=== PATIENT | female | born 1975 | race Caucasian/White ===

== ENCOUNTER 2017-06-01 12:37 | Emergency (ER) | payer OTHER ==
[~2017-06-01] VITALS: Ht 157.5 cm; Wt 75.7 kg
[2017-06-01 12:53] VITALS: Ht 157.5 cm; Wt 75.7 kg
[2017-06-01] MEDS ORDERED: KETOROLAC 30 MG INJ IV STA (14:16)
[2017-06-01] MEDS ORDERED: SOD CHLORIDE 0.9% 1,000 ML IV STA (14:16)
[2017-06-01 15:06] LABS: BASOPHILS % 0.2 % (0.0-2.0); EOSINOPHILS # 0.2 10^3/ul (0.0-0.5); EOSINOPHILS % 1.9 % (0.0-7.0); HEMATOCRIT 38.6 % (37.0-47.0); HEMOGLOBIN 12.8 g/dl (12.0-16.0); LYMPHOCYTES # 2.7 10^3/ul (0.8-2.9); LYMPHOCYTES % 29.2 % (15.0-51.0); MEAN CORPUSCULAR HEMOGLOBIN 28.5 pg (29.0-33.0); MEAN CORPUSCULAR HGB CONC 33.2 g/dl (32.0-37.0); MEAN PLATELET VOLUME 10.4 fl (7.4-10.4); MONOCYTE # 0.6 10^3/ul (0.3-0.9); MONOCYTES % 6.4 % (0.0-11.0); NEUTROPHIL # 5.8 10^3/ul (1.6-7.5); PLATELET COUNT 459 10^3/UL (140-415); RED BLOOD COUNT 4.49 10^6/ul (4.20-5.40); RED CELL DISTRIBUTION WIDTH 12.8 % (11.5-14.5); WHITE BLOOD COUNT 9.3 10^3/ul (4.8-10.8)
[2017-06-01 15:23] LABS: ALBUMIN 5.3 g/dl (3.3-4.9); ALBUMIN/GLOBULIN RATIO 1.47; BILIRUBIN,INDIRECT 0.2 mg/dl (0-1.1); BILIRUBIN,TOTAL 0.2 mg/dl (0.2-1.3); CALCIUM 9.5 mg/dl (8.4-10.2); CREATININE 0.76 mg/dl (0.44-1.00); POTASSIUM 3.8 mmol/L (3.5-5.1); TOTAL PROTEIN 8.9 g/dl (6.1-8.1)
[2017-06-01 15:29] LABS: ADD UMIC YES; UR ASCORBIC ACID NEGATIVE (NEGATIVE); UR BACTERIA FEW /HPF (NONE SEEN); UR BILIRUBIN (Dip) NEGATIVE (NEGATIVE); UR BLOOD (Dip) 3+ mg/dL (NEGATIVE); UR CLARITY SLIGHTLY CLOUDY (CLEAR); UR COLOR YELLOW (YELLOW); UR GLUCOSE (Dip) NEGATIVE (NEGATIVE); UR KETONES (Dip) NEGATIVE (NEGATIVE); UR LEUKOCYTE ESTERASE (Dip) TRACE Leu/ul (NEGATIVE); UR NITRITE (Dip) NEGATIVE (NEGATIVE); UR RBC > 182 /HPF (0-5); UR SPECIFIC GRAVITY (Dip) 1.021 (1.003-1.030); UR TOTAL PROTEIN (Dip) 1+ mg/dl (NEGATIVE); UR UROBILINOGEN (Dip) NEGATIVE (NEGATIVE)
--- NOTE | 2017-06-01 15:46 | RADRPT ---
PROCEDURE: US Pelvis. CLINICAL INDICATION: Left pelvic pain. Vaginal bleeding. TECHNIQUE: The pelvis was evaluated with transabdominal and transvaginal sonography in the axial a nd sagittal planes. COMPARISON: No prior study is available for comparison. FINDINGS: Uterus: 9.1 x 5.6 x 6.0 cm. Endometrium: 13.9 mm. Right ovary: 2.5 x 1.5 x 2.2 cm. Left ovary: 3.3 x 2.3 x 2.3 cm. Uterine masses: There is a subserosal fibroid measuring 1.9 x 1.5 x 2.8 cm. Ovarian masses: None. Color Doppler and pulsed Doppler sonography demonstrate normal flow to the ova deanne. Other pelvic masses: None. Free fluid: None. IMPRESSION: 1. Subserosal fibroid measuring 1.9 x 1.5 x 2.8 cm. 2. Otherwise normal pelvic ultrasound. RPTAT: QQ .Kennedy Davison MD, MD Date Time Electronically viewed and signed by .Kennedy Davison MD, on 06/01/2017 15:45 .R/
--- NOTE | 2017-06-01 15:51 | RADRPT ---
PROCEDURE: CT abdomen and pelvis without contrast. CLINICAL INDICATION: Abdominal pain. TECHNIQUE: CT scan of the abdomen and pelvis without contrast was performed on the multislice CT s [employer]. No intravenous contrast was administered. 3-D sagittal and coronal reformatted images were obtained from the axial source images. One or more of the following post reduction techniques were used: - Automated exposure control. - Adjustment of the mA and/or Kv according to patient's size. - Use of iterative reconstruction technique DLP 534.60 mGycm. CTDI vol 9.47 mGy COMPARISON: None. FINDINGS: The lung bases are clear. Evaluation of the solid organs is limited due to lack of intravenous contrast. The liver, spleen, adrenal glands, pancreas, gallbladder are normal. The kidneys are normal in size with no evidence of hydronephrosis. No kidney stones are visualized. The aorta is normal in caliber and there is no ascites or retroperitoneal adenopathy. There is no fr ee air or fluid. There is no bowel obstruction. Appendix and large bowel unremarkable. The urinary bladder is normal. No pelvic masses or pelvic lymphadenopathy seen. There is no acute osseous abnormality. RPTAT: AA IMPRESSION: Unremarkable CT scan of the abdomen and pelvis. Physician Meenu Date Time Electronically viewed and signed by Physician Meenu on 06/01/2017 15:50 [place]/
--- NOTE | 2017-06-01 16:13 | ERD ---
ER Documentation Chief Complaint Chief Complaint LLQ WITH RADIATING LEFT FLANK WITH VAG BLEEDING X 7 DAYS, +DYSURIA HPI 41 year old female presents with left lower quadrant abdominal and pelvic pain with vaginal bleeding and dysuria x 7 days. No fevers/chills. No vomiting or diarrhea. Patient reports heavy menstrual bleeding that her usual menstrual period and states she has been having more large blood clots. No recent travel. No sick contacts. No chest pain, shortness of breath, difficulty breathing, back or flank pain. ROS All systems reviewed and are negative except as per history of present illness. Medications Home Meds Active Scripts Medroxyprogesterone Acetate* (Provera*) 5 Mg Tablet, 5 MG PO DAILY for 5 Days, TAB Prov:SULEMA BRADFORD NP 06/01/17 Ciprofloxacin Hcl* (Ciprofloxacin Hcl*) 500 Mg Tablet, 500 MG PO BID for 7 Days , TAB Prov:SULEMA BRADFORD NP 06/01/17 Hydrocodone/Acetaminophen ([place] 5-325 Tablet) 1 Each Tablet, 1 TAB PO Q6H Y for PAIN, #7 TAB Prov:SULEMA BRADFORD NP 06/01/17 PMhx/Soc Medical and Surgical Hx: pt denies Medical Hx History of Surgery: Yes (TUBAL LIGATION) Hx Alcohol Use: No Hx Substance Use: No Hx Tobacco Use: No Smoking Status: Never smoker Physical Exam Vitals Physical Exam Const: NAD Head: Atraumatic Eyes: Normal Conjunctiva ENT: Normal External Ears, Nose and Mouth. Neck: Full range of motion..~ No meningismus. Resp: Clear to auscultation bilaterally Cardio: Regular rate and rhythm, no murmurs Abd: Soft, generalized tenderness, non distended. Normal bowel sounds Skin: No petechiae or rashes Back: No midline or flank tenderness Ext: No cyanosis, or edema Neur: Awake and alert Psych: Normal Mood and Affect Results 24 hrs Laboratory Tests Test 06/01/17 14:18 06/01/17 14:50 White Blood Count 9.310^3/ul Red Blood Count 4.4910^6/ul Hemoglobin 12.8g/dl Hematocrit 38.6% Mean Corpuscular Volume 86.0fl Mean Corpuscular Hemoglobin 28.5pg Mean Corpuscular Hemoglobin Concent 33.2g/dl Red Cell Distribution Width 12.8% Platelet Count 21885^3/UL Mean Platelet Volume 10.4fl Neutrophils % 62.0% Lymphocytes % 29.2% Monocytes % 6.4% Eosinophils % 1.9% Basophils % 0.2% Nucleated Red Blood Cells % 0.0/100WBC Neutrophils # 5.810^3/ul Lymphocytes # 2.710^3/ul Monocytes # 0.610^3/ul Eosinophils # 0.210^3/ul Basophils # 0.010^3/ul Nucleated Red Blood Cells # 0.010^3/ul Sodium Level 145mmol/L Potassium Level 3.8mmol/L Chloride Level 103mmol/L Carbon Dioxide Level 26mmol/L Anion Gap 20 Blood Urea Nitrogen 14mg/dl Creatinine 0.76mg/dl Glucose Level 94mg/dl Calcium Level 9.5mg/dl Total Bilirubin 0.2mg/dl Direct Bilirubin 0.00mg/dl Indirect Bilirubin 0.2mg/dl Aspartate Amino Transf (AST/SGOT) 39IU/L Alanine Aminotransferase (ALT/SGPT) 47IU/L Alkaline Phosphatase 70IU/L Total Protein 8.9g/dl Albumin 5.3g/dl Globulin 3.60g/dl Albumin/Globulin Ratio 1.47 Lipase 133U/L Serum HCG, Qualitative NEGATIVE Urine Color YELLOW Urine Clarity SLIGHTLY CLOUDY Urine pH 5.0 Urine Specific [place] 1.021 Urine Ketones NEGATIVEmg/dL Urine Nitrite NEGATIVEmg/dL Urine Bilirubin NEGATIVEmg/dL Urine Urobilinogen NEGATIVEmg/dL Urine Leukocyte Esterase TRACELeu/ul Urine Microscopic RBC > 182/HPF Urine Microscopic WBC 20/HPF Urine Bacteria FEW/HPF Urine Hemoglobin 3+mg/dL Urine Glucose NEGATIVEmg/dL Urine Total Protein 1+mg/dl Current Medications Medications (Trade) Dose Ordered Sig/Nery Route PRN Reason Start Time Stop Time Status Last Admin Dose Admin Sodium Chloride (NS) 1,000 ml @ 1,000 mls/hr Q1H STAT IV 06/01/17 14:16 06/01/17 15:15 DC 06/01/17 15:34 Ketorolac Tromethamine (Toradol) 30 mg ONCE STAT IV 06/01/17 14:16 06/01/17 14:21 DC 06/01/17 15:34 Procedures/MDM Patient: MARIBEL STYLES : 1975 Age: 41 Sex: F [id number]: 06/01/17 141 Ordering MD: SULEMA LONG NP Location: [facility]TE Room/Bed: PROCEDURE: US Pelvis. CLINICAL INDICATION: Left pelvic pain. Vaginal bleeding. TECHNIQUE: The pelvis was evaluated with transabdominal and transvaginal sonography in the axial and sagittal planes. COMPARISON: No prior study is available for comparison. FINDINGS: Uterus: 9.1 x 5.6 x 6.0 cm. Endometrium: 13.9 mm. Right ovary: 2.5 x 1.5 x 2.2 cm. Left ovary: 3.3 x 2.3 x 2.3 cm. Uterine masses: There is a subserosal fibroid measuring 1.9 x 1.5 x 2.8 cm. Ovarian masses: None. Color Doppler and pulsed Doppler sonography demonstrate normal flow to the ovaries. Other pelvic masses: None. Free fluid: None. IMPRESSION: 1. Subserosal fibroid measuring 1.9 x 1.5 x 2.8 cm. 2. Otherwise normal pelvic ultrasound. Patient: MARIBEL STYLES : 1975 Age: 41 Sex: F [id number] DOS: 06/01/17 141 Ordering MD: SULEMA LONG NP Location: E Room/Bed: PROCEDURE: CT abdomen and pelvis without contrast. CLINICAL INDICATION: Abdominal pain. TECHNIQUE: CT scan of the abdomen and pelvis without contrast was performed on the multislice CT scanner. No intravenous contrast was administered. 3-D sagittal and coronal reformatted images were obtained from the axial source images. One or more of the following post reduction techniques were used: - Automated exposure control. - Adjustment of the mA and/or Kv according to patient's size. - Use of iterative reconstruction technique DLP 534.60 mGycm. CTDI vol 9.47 mGy COMPARISON: None. FINDINGS: The lung bases are clear. Evaluation of the solid organs is limited due to lack of intravenous contrast. The liver, spleen, adrenal glands, pancreas, gallbladder are normal. The kidneys are normal in size with no evidence of hydronephrosis. No kidney stones are visualized. The aorta is normal in caliber and there is no ascites or retroperitoneal adenopathy. There is no free air or fluid. There is no bowel obstruction. Appendix and large bowel unremarkable. The urinary bladder is normal. No pelvic masses or pelvic lymphadenopathy seen. There is no acute osseous abnormality. RPTAT: AA IMPRESSION: Unremarkable CT scan of the abdomen and pelvis. MDM: This is a 41-year-old female presenting to emergency department for vaginal bleeding, pelvic pain and dysuria 7 days. Patient states last menstrual period started 05/26/2017. Patient states she has been having heavy menstrual bleeding with multiple blood clots. No active vomiting or diarrhea. CBC shows no significant anemia or infection. CMP shows no significant electrolyte imbalance. Normal BUN and creatinine. Normal glucose. Normal liver enzymes. Normal lipase. UA shows 3+ blood, greater than 182 RBCs, 20 WBCs and trace leukocyte esterase. Pelvic ultrasound reviewed by radiologist as subserosal fibroid measuring 1.91.52.8 cm. Otherwise normal pelvic ultrasound. CT abdomen and pelvis reviewed by radiologist is unremarkable. Consulted Dr. Sherman and we agree that patient is appropriate for outpatient management. Low suspicion for acute abdomen, appendicitis, diverticulitis, bowel obstruction , hemorrhage or sepsis. Patient likely has fibroid and UTI. Patient is appropriate for outpatient management and will be given prescription for Provera, Cipro and Denison. Instructed patient to follow up with OIL DISPATCHER in the next 2-3 days. Resources provided. Return to ED for any new or worsening symptoms. Patient verbalizes understanding. All questions answered at discharge. Departure Diagnosis: Primary Impression: Fibroid Uterine leiomyoma location: subserous Qualified Code: D25.2 - Subserous leiomyoma of uterus Additional Impression: UTI (urinary tract infection) Urinary tract infection type: acute cystitis Hematuria presence: with hematuria Qualified Code: N30.01 - Acute cystitis with hematuria Condition: Stable SULEMA BRADFORD NP Jun 01, 2017 16:13
[2017-06-01] MEDS ORDERED: HYDR-906 PO (16:24)
[2017-06-01] MEDS ORDERED: CIPR500T4 PO (16:31)
[2017-06-01] MEDS ORDERED: MEDR5TAB PO (16:38)
[2017-06-01 17:01] VITALS: BP 139/89; PULSE 75; RESP 16; TEMP 98.3
== END 2017-06-01 17:03 | disposition home or self-care (01) ==
LOC: FTE 12:37
DX: D25.2 Subserosal leiomyoma of uterus (principal); N30.01 Acute cystitis with hematuria
CPT/HCPCS: 36415; 74176; 76830; 76856; 80053; 81001; 83690; 84703; 85025; 96374; J1885; J7030; Z7502

== ENCOUNTER 2017-07-04 15:33 | Emergency (ER) | payer OTHER ==
[~2017-07-04] VITALS: Ht 157.5 cm; Wt 75.4 kg
[~2017-07-04 15:33] MED LIST: CIPR500T4 PO; HYDR-906 PO; MEDR5TAB PO
[2017-07-04 15:39] VITALS: Ht 157.5 cm; Wt 75.4 kg
--- NOTE | 2017-07-04 18:09 | ERD ---
ER Documentation Chief Complaint Chief Complaint bib self, cc: vag bleed 10 + days, hx in may this 41 year ols female with uterinae fibroid and vaginal bleeding, patient was seen and had a full evaluation on 06/01 2014. She is here today after being seen by her resource recovery engineer to reports no abnormality. The patient reports dizziness, lightheadedness, and fatigue, findings are suspicious for anemia plan to replete blood work. Chart review done documenting a subserosal fibroid see below. Chart review PROCEDURE: US Pelvis. CLINICAL INDICATION: Left pelvic pain. Vaginal bleeding. TECHNIQUE: The pelvis was evaluated with transabdominal and transvaginal sonography in the axial and sagittal planes. COMPARISON: No prior study is available for comparison. FINDINGS: Uterus: 9.1 x 5.6 x 6.0 cm. Endometrium: 13.9 mm. Right ovary: 2.5 x 1.5 x 2.2 cm. Left ovary: 3.3 x 2.3 x 2.3 cm. Uterine masses: There is a subserosal fibroid measuring 1.9 x 1.5 x 2.8 cm. Ovarian masses: None. Color Doppler and pulsed Doppler sonography demonstrate normal flow to the ovaries. Other pelvic masses: None. Free fluid: None. IMPRESSION: 1. Subserosal fibroid measuring 1.9 x 1.5 x 2.8 cm. 2. Otherwise normal pelvic ultrasound. Electronically viewed and signed by .Kennedy Davison MD, on 06/01/2017 15:45 ROS All systems reviewed and are negative except as per history of present illness. Medications Home Meds Active Scripts Medroxyprogesterone Acetate* (Provera*) 5 Mg Tablet, 5 MG PO DAILY for 5 Days, TAB Prov:SULEMA BRADFORD NP 06/01/17 Ciprofloxacin Hcl* (Ciprofloxacin Hcl*) 500 Mg Tablet, 500 MG PO BID for 7 Days , TAB Prov:SULEMA BRADFORD NP 06/01/17 Hydrocodone/Acetaminophen ([place] 5-325 Tablet) 1 Each Tablet, 1 TAB PO Q6H Y for PAIN, #7 TAB Prov:SULEMA BRADFORD NP 06/01/17 Allergies Allergies: Coded Allergies: amoxicillin (Verified Allergy, Unknown, 07/04/17) PMhx/Soc History of Surgery: Yes (TUBAL LIGATION) Hx Alcohol Use: No Hx Substance Use: No Hx Tobacco Use: No Physical Exam Vitals Vital Signs Date Time Temp Pulse Resp B/P Pulse Ox O2 Delivery O2 Flow Rate FiO2 07/04/17 22:02 98.1 71 124/71 98 Room Air 07/04/17 15:39 98.9 100 18 163/86 100 Physical Exam Const: Well-nourished well-appearing well-hydrated 41-year-old female in no acute distress Eyes: Normal Conjunctiva, no pallor ENT: Normal External Ears, Nose and Mouth., Mucous membranes moist Cardio: Regular rate and rhythm, no murmurs Abd: Soft, non tender, non distended. Back: No midline or flank tenderness Neur: Awake and alert Psych: Normal Mood and Affect Result Diagram: 07/04/171903 Results 24 hrs Laboratory Tests Test 07/04/17 19:04 07/04/17 21:28 White Blood Count 11.210^3/ul Red Blood Count 3.6110^6/ul Hemoglobin 10.1g/dl Hematocrit 30.6% Mean Corpuscular Volume 84.8fl Mean Corpuscular Hemoglobin 28.0pg Mean Corpuscular Hemoglobin Concent 33.0g/dl Red Cell Distribution Width 12.6% Platelet Count 50815^3/UL Mean Platelet Volume 10.0fl Neutrophils % 63.2% Lymphocytes % 27.5% Monocytes % 7.0% Eosinophils % 1.7% Basophils % 0.2% Nucleated Red Blood Cells % 0.0/100WBC Neutrophils # 7.110^3/ul Lymphocytes # 3.110^3/ul Monocytes # 0.810^3/ul Eosinophils # 0.210^3/ul Basophils # 0.010^3/ul Nucleated Red Blood Cells # 0.010^3/ul Bedside Urine pH (LAB) 6.0 Bedside Urine Protein (LAB) 2+ Bedside Urine Glucose (UA) Negative Bedside Urine Ketones (LAB) Negative Bedside Urine Blood 3+ Bedside Urine Nitrite (LAB) Negative Bedside Urine Leukocyte Esterase (L Negative Current Medications Medications (Trade) Dose Ordered Sig/Nery Route PRN Reason Start Time Stop Time Status Last Admin Dose Admin Sodium Chloride (NS) 500 ml @ 500 mls/hr Q1H STAT IV 07/04/17 18:10 07/04/17 19:09 DC 07/04/17 18:10 Acetaminophen (Tylenol Tab) 650 mg ONCE STAT PO 07/04/17 18:10 12/15/17 18:13 DC 07/04/17 21:47 Interpretation text CBC shows no evidence of hemorrhage or infection Urinalysis negative for evidence of infection Procedures/MDM This 41-year-old female presents to emergency department for reevaluation of dysfunctional uterine bleeding, status post treatment with Provera by emergency room physician, with complete workup on 06/01 2017, ultrasound that shows a subserosal fibroid, patient has been seen by her primary care physician, patient reports that physician did not prescribe any medication or do anything for her uterine bleeding, patient reports fatigue, and dizziness. Emergency room course includes history and physical exam, CBC to rule out acute blood loss or infection, urinalysis evaluation, serology findings include normal H&H, no evidence of blood loss, leukocytosis is mildly elevated, urinalysis negative for evidence of infection, patient will be discharged home with diagnosis of dysfunction uterine bleeding, to follow-up with primary care physician to come up with plan as to treatment. Return to emergency department if saturating peripads every hour, shortness of breath or chest pain. Patient is stable with no new complaints during ER course, clinically there is no current evidence to suggest meningitis, sepsis, acute abdomen, acute coronary syndromes, pulmonary embolism or any other emergent condition appearing to require further evaluation or hospitalization. I feel the patient is stable for discharge at this time. I have discussed results, examination findings, the treatment plan with the patient and family present prior to discharge. Indications for emergent reevaluation, side effects of medication were also discussed. All questions were answered. Patient verbalizes understanding and agrees with plan of care. Departure Diagnosis: Primary Impression: DUB (dysfunctional uterine bleeding) Condition: Good Patient Instructions: Dysfunctional Uterine Bleeding Additional Instructions: Thank you for for coming to [facility] for your care today. Please ask your nurse or provider if you have questions about your care today and do not leave until all your questions have been answered. Please use any medications given as directed and follow-up with your doctor (or the doctor you were referred to) in the next 2-3 days. If you do not have a primary care doctor [place] [facility] [place] You may also use motrin and tylenol as needed for fever and/or pain unless instructed otherwise by your provider or nurse. Indications for more urgent follow-up have been discussed, but you may return to the Emergency Department at ANY time for any worrisome or worsening symptoms. If you have abdominal pain, please know that no test or exam you received is perfect and you should follow up within 8 hours for continued pain. If you had any imaging studies today, such as an X-Ray or CT Scan, these studies will be reviewed later by a radiologist. You will be called if there are important findings that were not identified today, so make sure the contact information you provided at registration is correct. If you received any narcotic pain control medicine today, such as Vicodin, Morphine or Dilaudid, your coordination and judgment may be affected for a number of hours. Please do not drive or operate heavy machinery, and you may want someone to assist you at home. If you were given a prescription for narcotic medication, be aware that it is very addictive- use sparingly and only if necessary. PENNIE MONAHAN Jul 04, 2017 18:09
[2017-07-04] MEDS ORDERED: SOD CHLORIDE 0.9% 500 ML IV STA (18:10)
[2017-07-04] MEDS ORDERED: ACETAMINOPHEN 325 MG TAB PO STA (18:10)
[2017-07-04 19:37] LABS: BASOPHILS % 0.2 % (0.0-2.0); EOSINOPHILS # 0.2 10^3/ul (0.0-0.5); EOSINOPHILS % 1.7 % (0.0-7.0); HEMATOCRIT 30.6 % (37.0-47.0); HEMOGLOBIN 10.1 g/dl (12.0-16.0); LYMPHOCYTES # 3.1 10^3/ul (0.8-2.9); LYMPHOCYTES % 27.5 % (15.0-51.0); MEAN CORPUSCULAR VOLUME 84.8 fl (82.0-101.0); MONOCYTE # 0.8 10^3/ul (0.3-0.9); NEUTROPHIL # 7.1 10^3/ul (1.6-7.5); NEUTROPHILS % 63.2 % (39.0-77.0); PLATELET COUNT 399 10^3/UL (140-415); RED BLOOD COUNT 3.61 10^6/ul (4.20-5.40); RED CELL DISTRIBUTION WIDTH 12.6 % (11.5-14.5); WHITE BLOOD COUNT 11.2 10^3/ul (4.8-10.8)
[2017-07-04 21:28] LABS: URINE BLOOD (Dip) POC 3+ (NEGATIVE)
[2017-07-04] MEDS ORDERED: FAMO-96 PO (22:16)
[2017-07-04] MEDS ORDERED: NAPR-260 PO (22:16)
[2017-07-05 00:04] VITALS: BP 140/75; PULSE 75; RESP 18; TEMP 97.9
== END 2017-07-05 00:05 | disposition home or self-care (01) ==
LOC: FTE 15:33
DX: N93.8 Other specified abnormal uterine and vaginal bleeding (principal)
CPT/HCPCS: 81003; 85025; 86850; 86900; 86901; J7040; Z7502; Z7610